=== PATIENT | male | born 1960 | race Caucasian/White ===

== ENCOUNTER 2021-11-14 06:23 | Day surgery (SDC) | payer BC, OTHER ==
[2021-11-14] MEDS ORDERED: Sodium Chloride 0.9% 1,000 ML IV SCH (06:40)
[2021-11-14] MEDS ORDERED: Midazolam 1 MG/ML 2 ML SDV ONE (07:11)
[2021-11-14] MEDS ORDERED: fentaNYL 100 MCG/2 ML SDV ONE (07:11)
[2021-11-14] MEDS ORDERED: Propofol 200 MG/20 ML SDV ONE (07:11)
== END 2021-11-14 09:00 | disposition home or self-care (01) ==
LOC: JP.SDS 06:23
PROVIDERS: ATTEND Surgery
DX: Z12.11 Encounter for screening for malignant neoplasm of colon (principal); D12.4 Benign neoplasm of descending colon; K57.30 Diverticulosis of large intestine without perforation or abscess without bleeding; I10 Essential (primary) hypertension
CPT/HCPCS: 88305; J2250; J2704; J3010; J7030